=== PATIENT | male | born 1940 | race Caucasian/White ===

== ENCOUNTER 2019-08-19 08:58 | Day surgery (SDC) | payer MEDICARE, MEDICAID ==
[~2019-08-19] VITALS: Ht 175.3 cm; Wt 70.5 kg
[2019-08-19] MEDS ORDERED: MIDAZolam 5mg/5ml vial ONE (09:09)
[2019-08-19] MEDS ORDERED: fentaNYL/PF 50MCG/1 ML 2ML syringe ONE (09:09)
[2019-08-19] MEDS ORDERED: LIDOcaine Viscous 15ml cup ONE (09:09)
[2019-08-19 09:11] VITALS: BP 140/71
[2019-08-19] MEDS ORDERED: METO-395 PO (09:21)
[2019-08-19] MEDS ORDERED: TRAZ300T2 PO (09:22)
[2019-08-19] MEDS ORDERED: RISP2TAB3 PO (09:22)
[2019-08-19] MEDS ORDERED: FLUT100D2 INH (09:24)
[2019-08-19] MEDS ORDERED: SUCR1ORA12 PO (09:27)
[2019-08-19] MEDS ORDERED: LORA-269 PO ×2 (09:28→09:32)
[2019-08-19] MEDS ORDERED: FLO0.4C PO (09:29)
[2019-08-19] MEDS ORDERED: LIPA1CAP8 PO (09:29)
[2019-08-19] MEDS ORDERED: OMEP20TA5 PO (09:31)
[2019-08-19] MEDS ORDERED: ESCI10TA PO (09:32)
[2019-08-19] MEDS ORDERED: RISP0.5T3 PO (09:33)
[2019-08-19 09:59] VITALS: BP 121/56
[2019-08-19 10:09] VITALS: BP 132/68
[2019-08-19 10:19] VITALS: BP 136/80
[2019-08-19 10:25] VITALS: BP 126/81
== END 2019-08-19 10:29 | disposition home or self-care (01) ==
LOC: GI LAB 08:58
PROVIDERS: ATTEND Internal Medicine
DX: R13.10 Dysphagia, unspecified (principal); K20.8 Other esophagitis; K44.9 Diaphragmatic hernia without obstruction or gangrene
CPT/HCPCS: 43239; G0500; J2250; J3010; J7040; 99152; A4620

== ENCOUNTER 2020-01-10 15:57 | Emergency (ER) | payer MEDICARE, MEDICAID ==
[~2020-01-10] VITALS: Ht 182.9 cm; Wt 68.2 kg
[~2020-01-10 15:57] MED LIST: ESCI5TAB PO; FLO0.4C PO; LACT10SO PO; LIPA1CAP8 PO; METO-395 PO; OMEP20TA5 PO; RISP2TAB85 PO; SUCR1ORA12 PO; TRAZ300T2 PO
[2020-01-10 16:37] LABS: CLARITY,URINE CLEAR (Clear); COLOR,URINE YELLOW (Yellow); GLUCOSE, URINE NEGATIVE (Neg); KETONES,URINE NEGATIVE (Neg); LEUKOCYTE ESTERASE ,URINE SMALL (Neg); NITRITES, URINE NEGATIVE (Neg); OCCULT BLOOD,URINE NEGATIVE (Neg); PROTEIN,URINE NEGATIVE (Neg); UROBILINOGEN,URINE 0.2 E.U/dL (0.2-1.0)
[2020-01-10 16:41] LABS: UA COLLECTION TYPE URINAL
[2020-01-10 16:42] LABS: WBC,URINE 0-4 /HPF (0-4)
[2020-01-10 16:43] LABS: BACTERIA,URINE NONE SEEN /HPF (Neg); MUCUS STRANDS FEW /LPF (Neg); RBC,URINE 0-2 /HPF (0-2); SQUAMOUS EPITHELIAL CELL,UR FEW /LPF (FEW); TRANSITIONAL EPI CELLS,URINE FEW /HPF; YEAST FEW /HPF (NEGATIVE)
[2020-01-10 17:31] LABS: BASOPHILS % (AUTO) 1.1 % (0-1); EOSINOPHILS # (AUTO) 0.1 X10'3 (0-0.9); EOSINOPHILS % (AUTO) 2.9 % (0-6); HEMATOCRIT 30.3 % (42.0-52.0); HEMOGLOBIN 9.8 g/dl (14.0-17.9); LYMPHOCYTES # (AUTO) 1.6 X10'3 (1.1-4.8); LYMPHOCYTES % (AUTO) 38.8 % (21-51); MEAN CORPUSCULAR HEMOGLOBIN 26.7 PG (27.0-31.0); MEAN CORPUSCULAR HGB CONC 32.5 g/dL (33.0-36.5); MEAN PLATELET VOLUME 7.7 FL (7.4-10.4); MONOCYTES # (AUTO) 0.3 X10'3 (0-0.9); MONOCYTES % (AUTO) 6.8 % (2-12); NEUTROPHILS # (AUTO) 2.1 X10'3 (1.8-7.7); NEUTROPHILS % (AUTO) 50.4 % (42-75); PLATELET COUNT 208 X10'3 (140-440); RED BLOOD COUNT 3.69 X10'6 (4.70-6.10); RED CELL DISTRIBUTION WIDTH 15.2 % (11.5-14.5); WHITE BLOOD COUNT 4.1 X10'3 (4.5-11.0)
[2020-01-10 17:44] VITALS: BP 125/69
[2020-01-10 17:46] LABS: ALANINE AMINOTRANSFERASE 16 U/L (12-78); ALBUMIN 2.9 G/DL (3.4-5.0); ALBUMIN/GLOBULIN RATIO 0.8 (1.1-1.5); ALKALINE PHOSPHATASE 93 IU/L (46-116); ANION GAP 3 (8-16); ASPARTATE AMINO TRANSFERASE 14 U/L (10-37); BILIRUBIN,TOTAL 0.2 MG/DL (0.1-1.0); BLOOD UREA NITROGEN 15 MG/DL (7-18); BUN/CREATININE RATIO 11.8 (5.4-32.0); CALCIUM 8.6 MG/DL (8.5-10.1); CHLORIDE 109 MMOL/L (99-107); CREATININE 1.27 MG/DL (0.60-1.10); GLUCOSE 107 MG/DL (70-104); POTASSIUM 4.1 MMOL/L (3.5-5.1); SODIUM 143 MMOL/L (135-145); TOTAL CARBON DIOXIDE 31.3 MMOL/L (24-32); TOTAL PROTEIN 6.6 G/DL (6.4-8.2); eGFR 55 ML/MIN
== END 2020-01-10 19:22 | disposition home or self-care (01) ==
LOC: ER 15:58
DX: I60.9 Nontraumatic subarachnoid hemorrhage, unspecified (principal); R45.1 Restlessness and agitation; R62.50 Unspecified lack of expected normal physiological development in childhood; Z79.899 Other long term (current) drug therapy
CPT/HCPCS: 36415; 70450; 71045; 80053; 81001; 85025; 87088; 99285

== ENCOUNTER 2020-02-19 21:07 | Emergency (ER) | payer MEDICARE, MEDICAID ==
[~2020-02-19] VITALS: Ht 177.8 cm; Wt 60.0 kg
--- NOTE | 2020-02-19 23:45 | NUR ---
C Collar removed by KOLE Arboleda. Pt ate sandwich and drank cup of water aprox 1 hr ago. Pt just had episode of emisis. He reports pain to his right posterior thigh. just swabbed for covid, as pts faclity currently has some residents with covid +. placed in air[facility] precautions. Pt is difficult to understand and mumbles, but is ablt to make needs known. current vss.
[2020-02-20 00:10] LABS: CLARITY,URINE CLEAR (Clear); COLOR,URINE YELLOW (Yellow); GLUCOSE, URINE NEGATIVE (Neg); KETONES,URINE NEGATIVE (Neg); LEUKOCYTE ESTERASE ,URINE MODERATE (Neg); NITRITES, URINE NEGATIVE (Neg); OCCULT BLOOD,URINE NEGATIVE (Neg); PROTEIN,URINE NEGATIVE (Neg); UROBILINOGEN,URINE 0.2 E.U/dL (0.2-1.0)
[2020-02-20 00:13] LABS: UA COLLECTION TYPE URINAL
[2020-02-20 00:17] LABS: RBC,URINE NONE SEEN /HPF (0-2); WBC,URINE 30-50 /HPF (0-4)
[2020-02-20 00:18] LABS: BACTERIA,URINE 1+ /HPF (Neg); SQUAMOUS EPITHELIAL CELL,UR FEW /LPF (FEW)
[2020-02-20 00:19] LABS: BASOPHILS # (AUTO) 0.1 X10'3 (0-0.2); BASOPHILS % (AUTO) 0.9 % (0-1); EOSINOPHILS # (AUTO) 0.1 X10'3 (0-0.9); EOSINOPHILS % (AUTO) 2.5 % (0-6); HEMATOCRIT 27.1 % (42.0-52.0); HEMOGLOBIN 8.8 g/dl (14.0-17.9); LYMPHOCYTES # (AUTO) 1.2 X10'3 (1.1-4.8); LYMPHOCYTES % (AUTO) 20.8 % (21-51); MEAN CORPUSCULAR HEMOGLOBIN 26.1 PG (27.0-31.0); MEAN CORPUSCULAR HGB CONC 32.5 g/dL (33.0-36.5); MEAN CORPUSCULAR VOLUME 80.2 FL (78-98); MEAN PLATELET VOLUME 8.4 FL (7.4-10.4); MONOCYTES # (AUTO) 0.4 X10'3 (0-0.9); MONOCYTES % (AUTO) 6.3 % (2-12); NEUTROPHILS % (AUTO) 69.5 % (42-75); PLATELET COUNT 257 X10'3 (140-440); RED BLOOD COUNT 3.37 X10'6 (4.70-6.10); RED CELL DISTRIBUTION WIDTH 17.8 % (11.5-14.5); WHITE BLOOD COUNT 5.8 X10'3 (4.5-11.0)
[2020-02-20 00:35] LABS: ALANINE AMINOTRANSFERASE 16 U/L (12-78); ALBUMIN 2.1 G/DL (3.4-5.0); ALBUMIN/GLOBULIN RATIO 0.6 (1.1-1.5); ALKALINE PHOSPHATASE 83 IU/L (46-116); ANION GAP 7 (8-16); ASPARTATE AMINO TRANSFERASE 15 U/L (10-37); BILIRUBIN,TOTAL 0.2 MG/DL (0.1-1.0); BLOOD UREA NITROGEN 25 MG/DL (7-18); BUN/CREATININE RATIO 17.9 (5.4-32.0); C-REACTIVE PROTEIN 0.64 MG/DL (0.0-0.5); CALCIUM 8.2 MG/DL (8.5-10.1); CHLORIDE 106 MMOL/L (99-107); GLUCOSE 122 MG/DL (70-104); LACTATE DEHYDROGENASE 194 U/L (85-227); POTASSIUM 4.4 MMOL/L (3.5-5.1); SODIUM 138 MMOL/L (135-145); TOTAL CARBON DIOXIDE 24.8 MMOL/L (24-32); TOTAL PROTEIN 5.8 G/DL (6.4-8.2); eGFR 49 ML/MIN
[2020-02-20] MEDS ORDERED: CefTRIAXone/D5W-Rocephin 1gm 50 ML IV ONE (01:00)
--- NOTE | 2020-02-20 01:06 | NUR ---
PT IS COVID+. TO BE ADMITTED. KOLE HENDRICKS CALLING HIS [facility] TO UPDATED OF THIS.
[2020-02-20] MEDS ORDERED: CEPH250T PO (01:21)
[2020-02-20] MEDS ORDERED: CefTRIAXone 1000mg IM Kit (w/lidocaine diluent) IM ONE ×2 (01:50→02:30)
--- NOTE | 2020-02-20 01:52 | NUR ---
CALLED [facility]ORE[facility] CARGO TO GET PT HOME NOREEN CARGO DIDNT ANSWER WILL TRY AGAIN
--- NOTE | 2020-02-20 02:20 | NUR ---
CALLED NOREEN CARGO AGAIN AND STILL NO ANSWER
--- NOTE | 2020-02-20 02:21 | NUR ---
AFTER 3 ATTEMPTS UNABLE TO GET PIV. ROCEFIN IV CHANGED TO ROCEFIN IM PER Glenda HENDRICKS.
[2020-02-20 02:41] VITALS: BP 102/55
== END 2020-02-20 03:34 | disposition home or self-care (01) ==
LOC: ER 21:08
DX: S00.81XA Abrasion of other part of head, initial encounter (principal); M25.551 Pain in right hip; R51.9 Headache, unspecified; J84.9 Interstitial pulmonary disease, unspecified; U07.1 COVID-19; N39.0 Urinary tract infection, site not specified; F20.9 Schizophrenia, unspecified; Z79.899 Other long term (current) drug therapy; W01.0XXA Fall on same level from slipping, tripping and stumbling without subsequent striking against object, initial encounter; Y92.129 Unspecified place in nursing home as the place of occurrence of the external cause; F88 Other disorders of psychological development
CPT/HCPCS: 36415; 70450; 71045; 71250; 72125; 72192; 80053; 81001; 83615; 84145; 85025; 86140; 87088; 87635; 96372; 99285; C9803; J0696; U0003

== ENCOUNTER 2022-09-12 17:25 | Emergency (ER) | payer MEDICARE, MEDICAID ==
[~2022-09-12] VITALS: Ht 172.7 cm; Wt 72.7 kg
[~2022-09-12 17:25] MED LIST changes: +ANUHCCR RC; +CARB15DR58 EACHEYE; +CHOL100017 PO; +DOCU100C40 PO; -ESCI5TAB PO; +FAMO20TA8 PO; +FERR325T32 PO; -FLO0.4C PO; +FLUT16SP11 BOTHNARES; +GABA300C PO; -LACT10SO PO; -OMEP20TA5 PO; +ONDA4TAB12 PO; +POLY17PO59 PO; +PRED5DRO23 LEFTEYE; +RISP1TAB98 PO; -SUCR1ORA12 PO; +SUCR1ORA15 PO; +TAM75C PO; +TERA1CAP4 PO; +TRAZ150T78 PO; -TRAZ300T2 PO
[2022-09-12 17:43] VITALS: BP 117/68; PULSE 87; RESP 18; TEMP 98.9; O2SAT 95
== END 2022-09-12 20:27 | disposition home or self-care (01) ==
LOC: ER 17:27
DX: S63.617A Unspecified sprain of left little finger, initial encounter (principal); R56.9 Unspecified convulsions; Z91.013 Allergy to seafood; Z79.899 Other long term (current) drug therapy; X58.XXXA Exposure to other specified factors, initial encounter; Y93.89 Activity, other specified; Y92.89 Other specified places as the place of occurrence of the external cause; Y99.8 Other external cause status
CPT/HCPCS: 73140; 99283

== ENCOUNTER 2022-10-09 02:10 | Emergency (ER) | payer MEDICARE, MEDICAID ==
[~2022-10-09] VITALS: Ht 172.7 cm; Wt 80.9 kg
[2022-10-09 02:29] VITALS: TEMP 97.7
[2022-10-09] MEDS ORDERED: acetaminophen 325mg tablet PO ONE (04:05)
[2022-10-09] MEDS ORDERED: TETanus/Pertussis (Acell)/Diphther VAC/PF (Tdap-Adult) 0.5ml syringe IMVAC ONE (04:05)
[2022-10-09 05:26] VITALS: BP 155/80; PULSE 64; RESP 8; O2SAT 95
== END 2022-10-09 05:33 ==
LOC: ER 02:11
DX: S80.811A Abrasion, right lower leg, initial encounter (principal); Z91.013 Allergy to seafood; Z79.899 Other long term (current) drug therapy; W19.XXXA Unspecified fall, initial encounter; Y93.89 Activity, other specified; Y92.89 Other specified places as the place of occurrence of the external cause; Y99.8 Other external cause status
CPT/HCPCS: 70450; 73590; 90471; 90715; 93005; 99285

== ENCOUNTER 2024-02-13 07:14 | Emergency (ER) | payer MEDICARE, MEDICAID ==
[~2024-02-13] VITALS: Ht 177.8 cm; Wt 79.1 kg
[~2024-02-13 07:14] MED LIST changes: +ONDA-243 PO; -ONDA4TAB12 PO; +RISP-31 PO; +RISP-32 PO; -RISP1TAB98 PO; -RISP2TAB85 PO
[2024-02-13 10:16] VITALS: BP 124/76; PULSE 76; RESP 16; TEMP 98.4; O2SAT 98
== END 2024-02-13 10:17 | disposition home or self-care (01) ==
LOC: ER 07:15
DX: S09.90XA Unspecified injury of head, initial encounter (principal); F20.9 Schizophrenia, unspecified; Z91.013 Allergy to seafood; W19.XXXA Unspecified fall, initial encounter; Y93.89 Activity, other specified; Y92.89 Other specified places as the place of occurrence of the external cause; Y99.8 Other external cause status
CPT/HCPCS: 70450; 99284